=== PATIENT | male | born 1950 | race American Indian/Alaskan Native ===

== ENCOUNTER 2021-11-29 10:54 | Outpatient (CLI) | payer OTHER ==
[2021-11-29 11:45] LABS: Blood Urea Nitrogen 24 mg/dL (9-20)
--- NOTE | 2021-11-29 13:48 | Cat Scan Report ---
CT ABDOMEN AND PELVIS WITH AND WITHOUT CONTRAST INDICATION / CLINICAL INFORMATION: mALIGNANT NEOPLASM OF LIVER 100 ML OMNI 300 . TECHNIQUE: Axial CT images were obtained through the abdomen and pelvis before and after 100 cc of Omnipaque 300 IV contrast. Sagittal and coronal reformatted images. All CT scans at this location are performed us ing CT dose reduction for ALARA by means of automated exposure control. COMPARISON: None available. FINDINGS: LOWER CHEST: Mild atelectatic changes or linear scarring is identified at the lung bases. Normal hear t size. LIVER: The liver has a cirrhotic configuration. No suspicious liver mass is detected. The portal veno us system and hepatic veins are patent. GALLBLADDER: Multiple tiny gallstones are identified. No inflammatory changes or wall thickening. BILE DUCTS: No significant abnormality. PANCREAS: No significant abnormality. SPLEEN: The spleen is normal size measuring 8.8 cm. ADRENALS: No significant abnormality. RIGHT KIDNEY and URETER: A 5 cm cyst projects into the superior right renal sinus. A [address] is noted near the inferior pole. Otherwise unremarkable. LEFT KIDNEY and URETER: No significant abnormality. STOMACH and SMALL BOWEL: No significant abnormality. COLON: No significant abnormality. APPENDIX: No significant abnormality. PERITONEUM: No free fluid. No free air. No fluid collection. LYMPH NODES: No significant adenopathy. AORTA and ARTERIES: Moderate atherosclerotic calcification without acute abnormality. IVC and VEINS: No significant abnormality. URINARY BLADDER: No significant abnormality. REPRODUCTIVE ORGANS: No significant abnormality. ADDITIONAL FINDINGS: None. SKELETAL SYSTEM: Mild lumbar spondylosis. IMPRESSION: Mild to moderate cirrhotic changes are identified in the liver. No evidence for focal liver lesion. No splenomegaly, large varicosities or ascites. Cholelithiasis. Right renal cysts. Signer Name: Michel Brennan Jr, MD Signed: 11/29/2021 1:44 PM Workstation Name: [id number]
== END 2021-11-29 10:55 | disposition home or self-care (01) ==
LOC: CT 10:54
PROVIDERS: ATTEND Radiology Vascular & Interventional Radiology
DX: C22.9 Malignant neoplasm of liver, not specified as primary or secondary (principal); J98.11 Atelectasis; N28.1 Cyst of kidney, acquired; K80.20 Calculus of gallbladder without cholecystitis without obstruction; I25.10 Atherosclerotic heart disease of native coronary artery without angina pectoris; M47.816 Spondylosis without myelopathy or radiculopathy, lumbar region
CPT/HCPCS: 36415; 74178; 82565; 84520; Q9967

== ENCOUNTER 2021-12-09 06:00 | Outpatient (CLI) | payer OTHER ==
[2021-12-09] MEDS ORDERED: SODIUM CHLORIDE 0.9% 1000 ML 1,000 ML IV SCH (07:30)
--- NOTE | 2021-12-09 07:42 | Anesthesia Consultation ---
Anesthesia Consult and Med Hx Date of service: 12/09/21 - Airway Anesthetic Teeth Evaluation: Good (missing #6 and 7) ROM Head & Neck: Adequate Mental/Hyoid Distance: Adequate Mallampati Class: Class II Intubation Access Assessment: Probably Good - Pre-Operative Health Status ASA Pre-Surgery Classification: ASA3 Proposed Anesthetic Plan: General - Pulmonary Hx Smoking: Yes (45 year/pack history, quit 6 years ago) Hx Respiratory Symptoms: Yes (Right lung CA, h/o right lower lobectomy) - Cardiovascular System Hx Hypertension: Yes Hx Coronary Artery Disease: No (high cholesterol) - Gastrointestinal Hx Gastroesophageal Reflux Disease: Yes - Endocrine Hx Liver Disease: Yes (liver nodule) - Other Systems Hx Cancer: Yes (R lung CA)
--- NOTE | 2021-12-09 07:43 | Anesthesia Day of Surgery ---
Anesthesia Day of Surgery - Day of Surgery Patient Examined: Yes Patient H&P Reviewed: Yes Patient is NPO: Yes
--- NOTE | 2021-12-09 08:24 | Short Stay Summary ---
Short Stay Documentation Date of service: 12/09/21 Narrative H&P: Liver mass. HCC - History Principal diagnosis: Hepatocellular carcinoma H&P: obtained from office - Allergies and Medications Current Medications: Allergies No Known Allergies Allergy (Unverified 12/06/21 11:25) Active Medications Sodium Chloride (Nacl 0.9% 1000 Ml) 1,000 mls @ 42 mls/hr IV DIRECT ELIAS - Brief post op/procedure progress note Date of procedure: 12/09/21 Pre-op diagnosis: Hepatocellular CA Post-op diagnosis: same Procedure: Microwave ablation of tumor Anesthesia: MAC Surgeon: DORYS JENKINS Estimated blood loss: minimal Condition: stable - Disposition Condition at discharge: Good Disposition: 01 HOME / SELF CARE / HOMELESS Short Stay Discharge Plan Follow up with: [facility] [Primary Care Provider] - 7 Days
[2021-12-09] MEDS ORDERED: HYDROmorphone 1 MG/1 ML INJ ONE (08:29)
[2021-12-09] MEDS ORDERED: MIDAZOLAM 2 MG/2 ML INJ ONE (08:29)
[2021-12-09] MEDS ORDERED: LIDOCAINE MPF (2%) 20 MG/1 ML VIAL 5 ML ONE (08:29)
[2021-12-09] MEDS ORDERED: KETAMINE/STERILE WATER 50 MG/ML SYRINGE ONE (08:33)
[2021-12-09 08:37] LABS: Hematocrit 33.7 % (35.5-45.6); Hemoglobin 10.9 gm/dl (11.8-15.2); Mean Corpuscular HGB Conc 32 % (32-34); Mean Corpuscular Volume 104 fl (84-94); Platelet Count 200 K/mm3 (140-440); Red Blood Count 3.24 M/mm3 (3.65-5.03); Red Cell Distribution Width 15.4 % (13.2-15.2)
[2021-12-09 08:48] LABS: INR 0.94 (0.87-1.13)
[2021-12-09 08:49] LABS: Partial Thromboplastin Time 33.3 Sec. (24.2-36.6)
[2021-12-09 08:50] LABS: BUN/Creatinine Ratio 22; Blood Urea Nitrogen 22 mg/dL (9-20); Calcium 9.6 mg/dL (8.4-10.2); Hemolysis Index 38
[2021-12-09] MEDS ORDERED: MORPHINE 4 MG/1 ML INJ IV PRN (10:56)
[2021-12-09] MEDS ORDERED: ONDANSETRON 4 MG/2 ML INJ IV ONE (10:58)
--- NOTE | 2021-12-09 15:27 | Post Anesthesia Evaluation ---
- Post Anesthesia Evaluation Patient Participated: Yes Airway Patent: Yes Stable Respiratory Function: Yes Nausea/Vomiting: No Temp > 96.8F: Yes Pain Manageable: Yes Adequeate Hydration: Yes Anesthesia Complications: No Block Receding Appropriately: Not Applicable Patient on Ventilator: No
[2021-12-09 15:38] VITALS: BP 136/86
--- NOTE | 2021-12-13 22:15 | Operative Report ---
DATE OF SURGERY: 12/09/2021 PROCEDURE: CT-guided microwave liver ablation. INDICATION: Hepatocellular carcinoma. ANESTHESIA: MAC provided by the anesthesia service. DESCRIPTION OF PROCEDURE: Following informed and written consent, the patient was placed supine on the CT scan gantry and initial images through the liver were obtained using radiopaque skin markers. The site of access in the right lateral aspect of the abdomen was marked and prepped and draped in the usual sterile fashion. Lidocaine was used for local anesthetic. The right lateral abdomen was prepped and draped in the usual sterile fashion. Lidocaine was used for local and deep anesthetic. A 15 gauge PR15XT microwave probe was inserted using CT guidance into the liver and sequentially advanced to the lesion site. The microwave ablation was then performed for a total of 10 minutes at 65 lucero. Following the ablation, pullback cauterization was performed. The probe was then removed and manual compression applied to the access site until hemostasis was achieved. A sterile dressing was applied. The patient tolerated the procedure well with no immediate complications and left the CT suite to the recovery area in satisfactory condition. The patient was discharged following a recovery time of approximately 3 hours. FINDINGS: Initial images of the liver demonstrated mildly cirrhotic liver with a nodule (which was previously biopsied and confirmed HCC), which is present in the left lobe of the liver segment 4 measuring 1.4 cm and hypodense. Following microwave ablation with a single probe, the nodule and surrounding area was successfully ablated. Gas bubbles were identified in the area of the nodule, confirming location of the ablation site. IMPRESSION: 1. Successful CT-guided microwave ablation of the left lobe liver nodule as described above. 2. The patient will follow up with my office and have a followup MRI in 1 month. TID: [id number] RECEIPT: [id number] INGA/HEYDI VAUGHN
--- NOTE | 2021-12-16 15:13 | Cat Scan Report ---
PLEASE SEE OPERATIVE REPORT ON 12-13-21 @ [facility]
== END 2021-12-09 06:01 | disposition home or self-care (01) ==
LOC: CATHLABREC 06:00
PROVIDERS: ATTEND Radiology Vascular & Interventional Radiology
DX: C22.0 Liver cell carcinoma (principal); I10 Essential (primary) hypertension; K21.9 Gastro-esophageal reflux disease without esophagitis; Z79.899 Other long term (current) drug therapy; Z98.890 Other specified postprocedural states; Z20.822 Contact with and (suspected) exposure to COVID-19
CPT/HCPCS: 36415; 77013; 80048; 85027; 85610; 85730; J1170; J2250; J2704; J3490; J7030; U0003; Q0162

== ENCOUNTER 2021-12-30 09:37 | Outpatient (CLI) | payer OTHER ==
[2021-12-30 10:44] LABS: Blood Urea Nitrogen 22 mg/dL (9-20)
--- NOTE | 2021-12-30 12:26 | Magnetic Resonance Report ---
MRI ABDOMEN WITHOUT AND WITH CONTRAST INDICATION / CLINICAL INFORMATION: MASS ON LIVER C22.0. TECHNIQUE: Multiplanar, multisequence series were obtained through the abdomen. COMPARISON: CT abdomen pelvis with and without contrast 11/29/2021 FINDINGS: LIVER: Cirrhotic configuration of the liver is again noted. Ablation site in the left hepatic lobe is identified measuring up to 4.9 x 3.0 cm in axial plane. This encompasses the previously described 1. 3 cm left hepatic lobe mass. There is smooth peripheral enhancement surrounding the ablation site wit h no evidence for residual or recurrent mass. No new liver mass is detected. GALLBLADDER: No significant abnormality. BILE DUCTS: No significant abnormality. PANCREAS: No significant abnormality. SPLEEN: No significant abnormality. ADRENALS: No significant abnormality. RIGHT KIDNEY AND URETER: Stable renal sinus cysts. The right kidney is otherwise unremarkable. LEFT KIDNEY AND URETER: No significant abnormality. STOMACH AND VISUALIZED BOWEL: No significant abnormality. PERITONEUM: No free fluid. No free air. No fluid collection. LYMPH NODES: No significant adenopathy. AORTA and ARTERIES: No significant abnormality. IVC and VEINS: No significant abnormality. ADDITIONAL FINDINGS: None. SKELETAL SYSTEM: No significant abnormality. IMPRESSION: Cirrhotic changes in the liver. Successful ablation of the liver mass is suspected. There has been i nterval ablation of the left hepatic lobe mass with no evidence for residual or recurrent liver mass. Follow-up is recommended. Signer Name: Michel Brennan Jr, MD Signed: 12/30/2021 12:22 PM Workstation Name: [id number]
== END 2021-12-30 09:38 | disposition home or self-care (01) ==
LOC: MRI 09:37
PROVIDERS: ATTEND Radiology Vascular & Interventional Radiology
DX: C22.0 Liver cell carcinoma (principal); N28.1 Cyst of kidney, acquired
CPT/HCPCS: 36415; 74183; 82565; 84520; A9575

== ENCOUNTER 2022-03-17 12:40 | Outpatient (CLI) | payer OTHER ==
[2022-03-17 14:15] LABS: Blood Urea Nitrogen 16 mg/dL (9-20)
--- NOTE | 2022-03-17 17:42 | Magnetic Resonance Report ---
MRI ABDOMEN WITHOUT AND WITH CONTRAST INDICATION / CLINICAL INFORMATION: C22.0 LIVER MASS,LIVER CELL CARCINOMA. TECHNIQUE: Multiplanar, multisequence series were obtained through the abdomen. COMPARISON: CT abdomen pelvis with and without contrast 11/29/2021, CT ablation Dec 09, 2021, and MRI 12/30/21 FINDINGS: LIVER: Cirrhotic morphology of liver. There is ablation site seen in hepatic segment 4A which is unch anged compared to prior MRI. No areas of arterial enhancement or delayed washout GALLBLADDER: No significant abnormality. BILE DUCTS: No significant abnormality. PANCREAS: No significant abnormality. SPLEEN: No significant abnormality. ADRENALS: No significant abnormality. Kidneys: Unchanged renal cysts. STOMACH AND VISUALIZED BOWEL: No significant abnormality. PERITONEUM: No free fluid. No free air. No fluid collection. LYMPH NODES: No significant adenopathy. AORTA and ARTERIES: No significant abnormality. IVC and VEINS: No significant abnormality. ADDITIONAL FINDINGS: None. SKELETAL SYSTEM: No significant abnormality. IMPRESSION: 1. Prior successful left hepatic lobe ablation without significant change. No new lesion or evidence of progression. 2. Cirrhosis. Signer Name: Jesus Escoto MD Signed: 03/17/2022 5:38 PM Workstation Name: [id number]
== END 2022-03-17 12:41 | disposition home or self-care (01) ==
LOC: MRI 12:40
PROVIDERS: ATTEND Radiology Vascular & Interventional Radiology
DX: C22.0 Liver cell carcinoma (principal); K74.60 Unspecified cirrhosis of liver
CPT/HCPCS: 36415; 74183; 82565; 84520; A9575